=== PATIENT | female | born 1935 | race Caucasian/White ===

== ENCOUNTER → 2017-07-30 | Outpatient (CLI) | payer MEDICARE, OTHER | END | disposition home or self-care (01) | LOC: KCIC MAMMO 12:21 | DX: Z12.31 Encounter for screening mammogram for malignant neoplasm of breast (principal) | CPT/HCPCS: 77063; 77067 ==

== ENCOUNTER → 2018-03-06 | Outpatient (CLI) | payer MEDICARE, BC, OTHER ==
[~2018-03-06] MED LIST: ALLO100T PO; AMLO1TAB99 PO; CRAN1CAP12 PO; DOCU-150 PO; HYDR-2766 PO; HYDR50TA6 PO; METO-269 PO; OMEP40CA5 PO; UBID10CA5 PO; VALS160T3 PO; VIT1CAPS11 PO
--- NOTE | 2018-03-06 15:51 | KCIC ---
Examination: Ultrasound kidneys HISTORY: History of chronic kidney disease stage III COMPARISON: None available FINDINGS: The right kidney measures 10.5 x 4.6 x 4.4 cm. The left kidney measures 11.0 x 4.4 x 4.7 cm. There is a 2.6 cm cystic structure in the right kidney. There is a 7 cm cystic structure identified in the left kidney likely a cyst. Limited examination due to bowel gas. The bilateral renal cortices are thin. There is a cystic structure identified in the right adnexa measuring 5 cm. IMPRESSION: 1. 2.6 cm cyst identified in the right kidney and a 7 cm cystic structure identified in the left kidney likely a cyst. 2. Thinning of the bilateral renal cortices probably due to medical renal disease. 3. 5 cm right adnexal cyst. Ultrasound pelvis may be useful for further evaluation. Electronically signed by: Irving Guadalupe MD (03/06/2018 3:47 PM) [id number]
== END | disposition home or self-care (01) ==
LOC: KCIC US 14:22
PROVIDERS: ATTEND Internal Medicine Nephrology
DX: N28.1 Cyst of kidney, acquired (principal); N18.3 Chronic kidney disease, stage 3 (moderate); N83.8 Other noninflammatory disorders of ovary, fallopian tube and broad ligament
CPT/HCPCS: 76770

== ENCOUNTER → 2018-03-12 | Outpatient (CLI) | payer MEDICARE, BC, OTHER ==
[~2018-03-12] MED LIST changes: +CALC500T54 PO; +FURO40TA4 PO; +GABA600T14 PO; +POTA10TA12 PO
--- NOTE | 2018-03-12 14:33 | KCIC ---
PA and lateral chest x-ray compared to similar study dated January 25, 2014 for dyspnea on effort for 9 months, nonsmoker. FINDINGS: There is focal eventration of the right hemidiaphragm. Lungs are clear. There is mild hyperinflation with flattening of the diaphragms and enlarged retrosternal airspace. Atherosclerosis of the abdominal aorta is noted. Heart size within normal limits. Right shoulder prosthesis is seen. IMPRESSION: 1. Hyperinflation with no acute cardiopulmonary abnormality. 2. Atherosclerosis. Electronically signed by: Aditya Anderson MD (03/12/2018 2:31 PM) [id number]
== END | disposition home or self-care (01) ==
LOC: KCIC 11:41
PROVIDERS: ATTEND Internal Medicine Pulmonary Disease
DX: J98.6 Disorders of diaphragm (principal); I70.0 Atherosclerosis of aorta
CPT/HCPCS: 71046

== ENCOUNTER → 2018-03-21 | Outpatient (CLI) | payer MEDICARE, BC, OTHER ==
--- NOTE | 2018-03-21 15:51 | KCIC ---
CT CHEST WO CONTRAST Indication: Dyspnea with exertion, cough, tightness in chest, sinus drainage, symptoms for about 9 months Technique: Noncontrast CT imaging was performed of the chest, multiplanar reconstruction images submitted. One or more of the following individualized dose reduction techniques were utilized for this examination: 1. Automated exposure control 2. Adjustment of the mA and/or kV according to patient size 3. Use of iterative reconstruction technique. Comparison: None Findings: There is artifact created by right shoulder arthroplasty. There is no pleural or pericardial effusion, pneumothorax, infiltrate, suspicious pulmonary nodularity. Thoracic aortic caliber is within normal limits. There is coronary calcification. There are some small mediastinal nodes, no significantly enlarged nodes identified of the chest. There may be right thyroid nodule although poorly evaluated due to artifact created by right shoulder arthroplasty, possible nodule of the right thyroid gland about 1.7 cm. Major airways are patent. There is multilevel thoracic spondylosis. IMPRESSION: 1. There is coronary calcification. 2. There is right thyroid nodule better characterized by ultrasound if clinically needed. 3. There is no significant pulmonary abnormality. Electronically signed by: Edgar Washington MD (03/21/2018 3:47 PM) [email or web address]
== END | disposition home or self-care (01) ==
LOC: KCIC CT 11:06
PROVIDERS: ATTEND Internal Medicine Pulmonary Disease
DX: I25.10 Atherosclerotic heart disease of native coronary artery without angina pectoris (principal); E04.1 Nontoxic single thyroid nodule; M47.894 Other spondylosis, thoracic region; I10 Essential (primary) hypertension
CPT/HCPCS: 71250

== ENCOUNTER 2018-03-26 08:01 | Outpatient (CLI) | payer MEDICARE, BC, OTHER ==
[2018-03-26] VITALS (9 sets, daily range): BP systolic 123–153; BP diastolic 57–76
[~2018-03-26] VITALS: Ht 152.4 cm; Wt 96.6 kg
[~2018-03-26 08:01] MED LIST changes: -CALC500T54 PO; -FURO40TA4 PO; -GABA600T14 PO; -POTA10TA12 PO
[2018-03-26] MEDS ORDERED: GABA600T14 PO (08:28)
[2018-03-26] MEDS ORDERED: POTA10TA12 PO (08:28)
[2018-03-26] MEDS ORDERED: FURO40TA4 PO (08:28)
[2018-03-26] MEDS ORDERED: CALC500T54 PO (08:28)
[2018-03-26] MEDS ORDERED: LIDOCAINE 1% PF 30 ML VIAL. ONE (08:32)
[2018-03-26] MEDS ORDERED: IODIXANOL 320 MG/ML 100 ML VIAL. ONE (08:32)
[2018-03-26] MEDS ORDERED: IV 1/2 NORMAL SALINE 1,000 ML IV SCH (08:45)
[2018-03-26 08:46] LABS: HEMATOCRIT 39.7 % (36.0-47.0); HEMOGLOBIN 13.5 g/dL (12.0-15.5); RED BLOOD COUNT 4.03 x10^6/uL (3.50-5.40); RED CELL DISTRIBUTION WIDTH 14.5 % (11.5-14.5); WHITE BLOOD COUNT 7.1 x10^3/uL (4.0-11.0)
[2018-03-26 08:51] LABS: CALCIUM 9.6 mg/dL (8.5-10.1); CREATININE 1.3 mg/dL (0.6-1.0); GFR 39.1; POTASSIUM 3.8 mmol/L (3.5-5.1)
[2018-03-26] MEDS ORDERED: MIDAZOLAM HCL/PF 2 MG/2 ML VIAL. IV ONE (09:00)
[2018-03-26] MEDS ORDERED: fentaNYL PF VIAL 100 MCG/2 ML VIAL IV ONE (09:00)
[2018-03-26] MEDS ORDERED: IODIXANOL 320 MG/ML 100 ML VIAL. IART ONE (09:00)
[2018-03-26] MEDS ORDERED: LIDOCAINE 1% PF 30 ML VIAL. INJ ONE (09:00)
[2018-03-26] MEDS ORDERED: CONTRAST GIVEN. MC PRN (09:15)
[2018-03-26] MEDS ORDERED: HYDROcodone/APAP 10/325 1 TAB TABLET PO ONE (14:00)
== END 2018-03-26 15:33 | disposition home or self-care (01) ==
LOC: CCL 08:01
PROVIDERS: ATTEND Internal Medicine Cardiovascular Disease
DX: I25.10 Atherosclerotic heart disease of native coronary artery without angina pectoris (principal); R07.9 Chest pain, unspecified; I12.9 Hypertensive chronic kidney disease with stage 1 through stage 4 chronic kidney disease, or unspecified chronic kidney disease; N18.3 Chronic kidney disease, stage 3 (moderate); Z98.890 Other specified postprocedural states; Z79.899 Other long term (current) drug therapy; M19.90 Unspecified osteoarthritis, unspecified site; Z85.118 Personal history of other malignant neoplasm of bronchus and lung; E78.5 Hyperlipidemia, unspecified; Z96.652 Presence of left artificial knee joint
CPT/HCPCS: 36415; 80048; 85027; 85610; 93453; 99152; 99153; C1769; C1771; C1773; C1892; G0269; J1644; J2250; J3010

== ENCOUNTER → 2018-07-31 | Outpatient (CLI) | payer MEDICARE, OTHER ==
[2018-03-26 14:55] VITALS: BP 135/57
[~2018-07-31] MED LIST changes: +CALC500T54 PO; +FURO40TA4 PO; +GABA600T14 PO; -HYDR-2766 PO; +HYDR-2769 PO; +OCUVITE SOFTGE1 EACH PO; +POTA10TA12 PO; -VIT1CAPS11 PO
--- NOTE | 2018-08-04 09:00 | KCIC ---
Bilateral digital screening mammograms with 3-D tomosynthesis: Reason for examination: Routine screening. Comparison is made to previous studies dated 07/30/2017 and 08/20/2016. Bilateral mammograms in CC and oblique projections were obtained with 2-D imaging and 3-D tomosynthesis imaging on a Siemens Inspiration unit and reviewed on the workstation. Interpretation was made with the benefit of CAD. The skin and nipples show no abnormalities. No abnormal axillary lymph nodes are seen. The breast parenchyma is predominantly fatty. (Breast density: Category A.) There are no dominant masses, suspicious calcifications or architectural distortion. Benign calcifications are present. Impression: No evidence of malignancy. Recommend routine screening. BI-RAD Category 2: Benign. "Our facility is accredited by the [employer] Mammography Program." This patient's information has been entered into a reminder system for the patient to be notified with the results of her examination and a target date for the next mammogram. Electronically signed by: Em Hollins MD (08/04/2018 8:57 AM) [email or web address]
== END | disposition home or self-care (01) ==
LOC: KCIC MAMMO 11:07
PROVIDERS: ATTEND Family Medicine
DX: Z12.31 Encounter for screening mammogram for malignant neoplasm of breast (principal)
CPT/HCPCS: 77063; 77067

== ENCOUNTER → 2018-08-19 | Outpatient (CLI) | payer MEDICARE, BC, OTHER ==
[2018-03-26 14:55] VITALS: BP 135/57
--- NOTE | 2018-08-19 14:10 | KCIC ---
EXAM: Chest CT without intravenous contrast. HISTORY: Solitary pulmonary nodule. TECHNIQUE: Computed tomographic images of the chest were obtained without contrast. Multiplanar reformatting was performed. *One or more of the following individualized dose reduction techniques were utilized for this examination: 1. Automated exposure control. 2. Adjustment of the mA and/or kV according to patient size. 3. Use of iterative reconstruction technique. COMPARISON: 03/21/2018. FINDINGS: There is a stable 2 mm nodule within the right upper lobe. There is a stable 3 mm groundglass nodular opacity within the medial right lower lobe. There is a stable 1 mm nodule within the left upper lobe. There is stable lingular and right middle lobe pleural parenchymal scarring. There is no infiltrate, pleural effusion or pneumothorax. The heart is mildly enlarged. There is coronary artery atherosclerosis. No pathologically enlarged lymph node is seen. There is a tiny hiatal hernia. There is a right thyroid nodule. There is cholelithiasis. There is a suspected 1.2 cm splenic artery aneurysm. There is a large cyst within the upper pole the left kidney measuring 6.8 cm on the [id number]-jh-dtej. This is partially excluded from the [id number]-bj-okxm. There is adrenal gland thickening and slight nodularity. No discrete lesion is seen. There are degenerative changes throughout the spine. IMPRESSION: 1. Tiny bilateral pulmonary nodules and groundglass nodular opacities, the largest of which is groundglass and measures 3 mm within the medial right lower lobe. These are likely benign based on size and interval stability. Follow-up can be performed according to Fleischner Society criteria if clinically indicated 2. Stable lingular and right middle lobe pleural parenchymal scarring. 3. Cholelithiasis. 4. Large left renal cyst. 5. Suspected small splenic artery aneurysm. 6. Stable right thyroid nodule. This can be assessed with a thyroid sonogram. Fleischner Society recommendations (Radiology 2017): SOLID NODULES Solitary solid nodule <6 mm - low-risk patient: no routine follow-up required - high-risk patient: optional CT at 12 months (particularly with suspicious nodule morphology and/or upper lobe location) Solitary solid nodule 6-8 mm - low-risk patient: CT at 6-12 months, then consider CT at 18-24 months - high risk patient: CT at 6-12 months, then if persistent CT at 18-24 months Solitary solid nodule >8 mm - consider CT at 3 months, PET/CT, or tissue sampling Multiple solid nodules <6 mm - low-risk patient: no routine follow-up required - high-risk patient: optional CT at 12 months Multiple solid nodules >6 mm - low-risk patient: CT at 3-6 months, then consider CT at 18-24 months - high risk patient: CT at 3-6 months, then if persistent CT at 18-24 months SUBSOLID NODULES Solitary ground glass nodule <6 mm - no routine follow-up required Solitary ground glass nodule > or = 6 mm - CT at 6-12 months, then if persistent CT every 2 years until 5 years Solitary part solid nodule > or = 6mm - CT at 3-4 months, the if persistent and solid component remains <6 mm, annual CT until 5 years Multiple subsolid nodules <6 mm - CT at 3-6 months, then if stable consider CT at 2 and 4 years in high risk patients Multiple subsolid nodules > or = 6 mm - CT at 3-6 months, then subsequent management based on the most suspicious nodule(s) Electronically signed by: Ara Spencer MD (08/19/2018 2:07 PM) [place] [id number]
== END | disposition home or self-care (01) ==
LOC: KCIC CT 11:12
PROVIDERS: ATTEND Internal Medicine Pulmonary Disease
DX: R91.8 Other nonspecific abnormal finding of lung field (principal); K80.20 Calculus of gallbladder without cholecystitis without obstruction; N28.1 Cyst of kidney, acquired; E04.1 Nontoxic single thyroid nodule; K44.9 Diaphragmatic hernia without obstruction or gangrene; I25.10 Atherosclerotic heart disease of native coronary artery without angina pectoris
CPT/HCPCS: 71250

== ENCOUNTER → 2018-09-26 | Outpatient (CLI) | payer MEDICARE, BC, OTHER ==
[2018-03-26 14:55] VITALS: BP 135/57
--- NOTE | 2018-09-26 17:20 | KCIC ---
Ultrasound of thyroid. HISTORY: Thyroid nodule on CT Ultrasound was used to evaluate the neck and thyroid gland. There is a mixed cystic and solid nodule measuring 1.1 x 0.8 x 0.7 cm in the upper right gland. There is a focal calcification in the mid thyroid. There is a dominant mainly cystic nodule in the lower right thyroid measuring 3 x 2 x 1.9 cm. There is a 6 mm mainly cystic nodule in the lateral left thyroid. There is a 6 mm mixed cystic and solid nodule in the mid left thyroid. There are 7 x 5 and 7 x 4 mm mixed cystic and solid nodules in the mid and lower left thyroid. IMPRESSION: 1. Multinodular gland. 2. Dominant cyst in the lower right thyroid. Follow-up study in one year may be of benefit. Electronically signed by: Marco Hastings MD (09/26/2018 5:17 PM) [facility]
== END | disposition home or self-care (01) ==
LOC: KCIC US 13:00
PROVIDERS: ATTEND Family Medicine
DX: E04.2 Nontoxic multinodular goiter (principal); E07.89 Other specified disorders of thyroid
CPT/HCPCS: 76536

== ENCOUNTER → 2020-02-04 | Outpatient (CLI) | payer MEDICARE, BC, OTHER ==
[2018-03-26 14:55] VITALS: BP 135/57
[~2020-02-04] MED LIST changes: +OMEP40CA45 PO; -OMEP40CA5 PO
--- NOTE | 2020-02-05 08:38 | KCIC ---
CT CHEST WO CONTRAST Indication: Moderate asthma Technique: Noncontrast CT imaging was performed of the chest, multiplanar reconstruction images submitted. One or more of the following individualized dose reduction techniques were utilized for this examination: 1. Automated exposure control 2. Adjustment of the mA and/or kV according to patient size 3. Use of iterative reconstruction technique. Comparison: August 19, 2018 Findings: There is stable tiny 2 mm subpleural right upper lobe nodule image 78 series 2. There is stable mild linear fibrotic change of the right middle lobe. New mild linear density of the right lower lobe near the base is likely mild atelectasis, unchanged mild linear left lower lobe and lingular density likely fibrotic change. There is no new suspicious pulmonary nodularity. There is no infiltrate, pleural or pericardial fluid, pneumothorax. There is no honeycombing. There is coronary calcification. Thoracic aortic caliber is within normal limits, scattered plaque. There are again some small mediastinal nodes, no new significant chest lymphadenopathy. There is again hypodense lesion of the right thyroid gland about 18 mm AP. There is right shoulder arthroplasty. There are hepatic and splenic granulomas. There is again splenic artery aneurysm, unchanged about 12 mm in size. There is 52 mm likely cyst of the superior left kidney, not fully included. There is multilevel thoracic spondylosis. IMPRESSION: 1. There is stable tiny right upper lobe nodule, no new suspicious lung nodularity or infiltrate. There is mild right lower lobe atelectasis, mild fibrotic change at the lung bases. 2. 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 3. There is coronary calcification. 4. There is unchanged right thyroid nodule. There is likely cyst of the superior left kidney although not fully included. Electronically signed by: Edgar Washington MD (02/05/2020 8:35 AM) [place] [id number]
== END | disposition home or self-care (01) ==
LOC: KCIC CT 08:55
PROVIDERS: ATTEND Internal Medicine Pulmonary Disease
DX: E04.1 Nontoxic single thyroid nodule (principal); J98.11 Atelectasis; J45.40 Moderate persistent asthma, uncomplicated; I72.8 Aneurysm of other specified arteries; J84.10 Pulmonary fibrosis, unspecified; R91.8 Other nonspecific abnormal finding of lung field
CPT/HCPCS: 71250

== ENCOUNTER → 2020-02-04 | Outpatient (CLI) | payer MEDICARE, BC, OTHER ==
[2018-03-26 14:55] VITALS: BP 135/57
--- NOTE | 2020-02-04 11:29 | KCIC ---
EXAM: Bilateral screening mammogram. HISTORY: 84-year-old female presents for screening mammography. TECHNIQUE: Full-field digital craniocaudal and mediolateral oblique views of both breasts are obtained for evaluation. Computer aided detection with FillmD software version 9.3 was applied. COMPARISON: 07/31/2018 BREAST PARENCHYMAL DENSITY: Level B - Scattered fibroglandular densities. FINDINGS: There is a new cluster of faint microcalcifications within the 4:30 position of the right breast centered approximately 6 cm from the nipple. There are additional scattered benign calcifications throughout both breasts. There is no new suspicious mass or architectural distortion. IMPRESSION: BI-RADS Category 0: Incomplete. Additional imaging needed. RECOMMENDATION: Further evaluation with spot magnification views of clustered microcalcifications within the 4:30 position of the right breast approximately 6 cm from nipple is recommended to better assess calcification morphology. If your mammogram demonstrates that you have dense breast tissue, which could hide abnormalities, and if you have other risk factors for breast cancer that have been identified, you might benefit from supplemental screening tests that may be suggested by your ordering physician. Dense breast tissue, in and of itself, is a relatively common condition. This information is not provided to cause undue concern, but rather to raise your awareness and to promote discussion with your physician regarding the presence of other risk factors, in addition to dense breast tissue. A report of your mammography results will be sent to you and your physician. You should contact your physician if you have any questions or concerns regarding this report. Mammography is a sensitive method for finding small breast cancers, but it does not detect them all and is not a substitute for careful clinical examination. A negative mammogram does not negate a clinically suspicious finding and should not result in delay in biopsying a clinically suspicious abnormality. PQRS compliance statement - Patient information was entered into a reminder system with a target due date for the next mammogram. "Our facility is accredited by the [employer] Mammography Program." Electronically signed by: Ara Spencer MD (02/04/2020 11:26 AM) [facility]
--- NOTE | 2020-02-04 15:51 | KCIC ---
Clinical indications: Thyroid nodule. Follow-up study. COMPARISON: September 26, 2018.. Findings: The longitudinal and AP and transverse dimensions of the right lobe of the thyroid gland are 5.6 cm x 2.0 cm x 1.9 cm respectively. There is a large complex cyst of the lower pole measuring 27 mm. This measured 30 mm previously This is an ACR TI RADS type I lesion, benign. There is an isoechoic solid nodule with cystic component within the upper pole measuring 12 mm. This measured 11 mm previously. This is an ACR TI RADS type II lesion, not suspicious. The longitudinal and AP and transverse dimensions of the left lobe are 5.0 cm x 1.7 cm x 1.8 cm respectively. There are 2 complex cystic nodules seen adjacent to one within the mid aspect. One more superior nodule looks like a complex colloid cyst measuring 11 mm with minimal superior solid component. One more inferiorly demonstrates some mild solid component within it and the nodule measures 10 mm in size. Both of these have increased in size from the prior study although they're considered an ACR TI RADS type II lesions, not suspicious. The isthmus is homogeneous in appearance and measures 2 mm in thickness. Impression: Benign thyroid nodules bilaterally. Reference: ACR thyroid imaging, reporting and data system (TI-RADS): White paper of the ACR TI-RADS committee; [employer]; volume 14, issue 5, pages [phone] (September 2016) Electronically signed by: Sean Flores MD (02/04/2020 3:49 PM) [id number]
== END | disposition home or self-care (01) ==
LOC: KCIC US 08:59
PROVIDERS: ATTEND Family Medicine
DX: Z12.31 Encounter for screening mammogram for malignant neoplasm of breast (principal); N64.89 Other specified disorders of breast; E04.2 Nontoxic multinodular goiter
CPT/HCPCS: 76536; 77067

== ENCOUNTER → 2020-02-11 | Outpatient (CLI) | payer MEDICARE, BC, OTHER ==
[2018-03-26 14:55] VITALS: BP 135/57
--- NOTE | 2020-02-11 10:30 | KCIC ---
Right breast diagnostic digital mammograms: Reason for examination: New cluster of calcifications on screening mammogram. Coned compression magnification views were obtained in CC and true lateral projections. A cluster of microcalcifications persists in the lower inner quadrant at approximately the 4:30 B position. Further evaluation with stereotactic biopsy is recommended. IMPRESSION: Clustered calcifications at the 4:30 B position of the right breast. Recommend stereotactic biopsy. BI-RADS Category 4: Suspicious. These findings have been discussed with the patient and the nurse practitioner for Alda [facility], was notified about these findings at 10:25 AM on 02/11/2020. "Our facility is accredited by the [employer] Mammography Program." This patient's information has been entered into a reminder system for the patient to be notified with the results of her examination and a target date for the next mammogram. Electronically signed by: Em Hollins MD (02/11/2020 10:27 AM) [id number]
== END | disposition home or self-care (01) ==
LOC: KCIC MAMMO 09:47
PROVIDERS: ATTEND Family Medicine
DX: R92.1 Mammographic calcification found on diagnostic imaging of breast (principal)
CPT/HCPCS: 77065

== ENCOUNTER 2020-09-18 08:37 | Emergency (ER) | payer MEDICARE, BC, OTHER ==
[~2020-09-18] VITALS: Ht 149.9 cm; Wt 70.0 kg
[~2020-09-18 08:37] MED LIST changes: -HYDR50TA6 PO; +HYDR50TA9 PO
[2020-09-18 09:27] VITALS: BP 188/80
--- NOTE | 2020-09-18 09:30 | ED.ADGEN ---
Past Medical History Past Medical History: Arthritis, Hypertension, Renal Disease, Other Additional Past Medical Histor: GOUT, BURSITIS Past Surgical History: Knee Replacement, Other Additional Past Surgical Histo: R ROTATOR CUFF, R CARPAL TUNNEL, KELLY KNEE, R SHOULDER REPLACEMENT Smoking Status: Never Smoker Alcohol Use: None General Adult EDM: Chief Complaint: HAND PROBLEM HPI: HPI: Patient is a 85 year old female presenting with left hand pain and swelling. Patient states she was mowing her lawn yesterday when she had a bump and fell off landing on her hand. She has been trying to ice it without improvement. No other injuries. Denies any paresthesias. Is right-handed. Review of Systems: Review of Systems: All other systems within normal limits except for as noted in the HPI Allergies: Allergies: Allergies Coded Allergies Type Severity Reaction Last Updated Verified acetaminophen Allergy Intermediate itching 03/26/18 Yes oxycodone Allergy Intermediate itching 03/26/18 Yes Physical Exam: PE: Constitutional: Well developed, well nourished, no acute distress, non-toxic appearance. [] HENT: Normocephalic, atraumatic, bilateral external ears normal, nose normal. [] Eyes: PERRLA, conjunctiva normal, no discharge. [] Neck: No rigidity, supple, no stridor. [] Cardiovascular: Regular rate and rhythm, brisk cap refill [] Lungs & Thorax: Non labored symmetric respirations, no tachypnea or respiratory distress [] Abdomen: Soft, nondistended. Skin: Warm, dry, no erythema, no rash. [] Back: Unremarkable Extremities: No deformities, range of motion grossly intact, no lower extremity edema. Left hand: Pain and swelling over second and third metacarpals. Neurovascularly intact distal [] Neurologic: Alert and oriented X 3, no focal deficits noted. [] Psychologic: Affect normal, judgement normal, mood normal. [] Current Patient Data: Vital Signs: Vital Signs Date Time Temp Pulse Resp B/P (MAP) Pulse Ox O2 Delivery O2 Flow Rate FiO2 09/18/20 09:27 79 16 188/80 (116) 96 Room Air 09/18/20 08:49 99.4 99.4 EKG: EKG: [] Heart Score: C/O Chest Pain: No Risk Factors: Risk Factors: DM, Current or recent (<one month) smoker, HTN, HLP, family his tory of CAD, obesity. Risk Scores: Score 0 - 3: 2.5% MACE over next 6 weeks - Discharge Home Score 4 - 6: 20.3% MACE over next 6 weeks - Admit for Clinical Observation Score 7 - 10: 72.7% MACE over next 6 weeks - Early Invasive Strategies Radiology/Procedures: Radiology/Procedures: Exam Date: 09/18/2020 9:25 AM XR HAND_LEFT 3 VIEWS Indication: Reason: pain, swelling after fall x1 day ago / Spl. Instructions: / History: FINDINGS/ IMPRESSION: Severe degenerative changes are present at the first CMC joint and at multiple IP joints. Tzcx-st-[id number] degenerative changes are seen elsewhere in the hand. No displaced acute fracture or dislocation. There is diffuse soft tissue edema.[] Course & Med Decision Making: Course & Med Decision Making Pertinent Labs and Imaging studies reviewed. (See chart for details) [] Dragon Disclaimer: Dragon Disclaimer: This electronic medical record was generated, in whole or in part, using a voice recognition dictation system. Departure Departure Impression: Primary Impression: Injury of left hand Disposition: 01 HOME / SELF CARE / HOMELESS Condition: STABLE Referrals: FANI CARPENTER MD (PCP) Patient Instructions: RICE - Routine Care for Injuries ABRAHAM DONAHUE MD September 18, 2020 09:29
--- NOTE | 2020-09-18 09:44 | RAD ---
Exam Date: 09/18/2020 9:25 AM XR HAND_LEFT 3 VIEWS Indication: Reason: pain, swelling after fall x1 day ago / Spl. Instructions: / History: FINDINGS/ IMPRESSION: Severe degenerative changes are present at the first CMC joint and at multiple IP joints. Mild-to-mod erate degenerative changes are seen elsewhere in the hand. No displaced acute fracture or dislocation . There is diffuse soft tissue edema. Electronically signed by: Moshe Pierson MD (09/18/2020 9:42 AM) [id number]
== END 2020-09-18 10:05 | disposition home or self-care (01) ==
LOC: ER 08:37
DX: S69.92XA Unspecified injury of left wrist, hand and finger(s), initial encounter (principal); I10 Essential (primary) hypertension; M10.9 Gout, unspecified; W18.39XA Other fall on same level, initial encounter; Y93.89 Activity, other specified; Y92.89 Other specified places as the place of occurrence of the external cause; Y99.8 Other external cause status; Z88.5 Allergy status to narcotic agent; Z88.6 Allergy status to analgesic agent
CPT/HCPCS: 73130; 99284

== ENCOUNTER → 2021-01-24 | Outpatient (CLI) | payer MEDICARE, BC, OTHER ==
[~2021-01-24] MED LIST changes: -DOCU-150 PO; +DOCU-158 PO; -OMEP40CA45 PO; +OMEP40CA7 PO
--- NOTE | 2021-01-24 11:33 | KCIC ---
CT THORAX WO History: Asthma, lung nodule. Comparison: CT chest 02/04/2020. Technique: Noncontrast CT of the chest. Findings: Assessment is limited by lack of IV contrast. Cardiovascular: Moderate aortic calcification. No aneurysm. Moderate coronary artery calcification. N ormal heart size. No significant pericardial effusion. Mediastinum and cristina: Shotty mediastinal lymph nodes. No enlarged adenopathy. The esophagus is unrema rkable. Punctate calcifications in the right thyroid redemonstrated. Airways, lungs and pleura: Mild diffuse bronchial wall thickening. No significant bronchiectasis. No airspace consolidation. Mild linear areas of atelectasis/scarring involving the lower lobes, lingula and right middle lobe. A few tiny subpleural nodules are redemonstrated. No new concerning pulmonary nodules. Upper abdomen: Redemonstrated splenic artery aneurysm measuring 1.2 cm. Calcifications of the spleen and liver consistent with old granulomatous disease. Osseous structures and soft tissues: Mild anterolisthesis of C7 on T1. Flowing osteophytes in the tho racic spine. Reverse right shoulder arthroplasty. Advanced degenerative changes of the left shoulder. Impression: 1. Mild diffuse bronchial wall thickening. No airspace consolidation or concerning pulmonary nodule. 2. Moderate coronary artery calcification. 3. Stable 1.2 cm splenic artery aneurysm. ------ Exposure: One or more of the following individualized dose reduction techniques were utilized for thi s examination: 1. Automated exposure control 2. Adjustment of the mA and/or kV according to patient size 3. Use of iterative reconstruction technique. Electronically signed by: Jim Bucio MD (01/24/2021 11:31 AM) [facility]
== END ==
LOC: KCIC CT 10:10
PROVIDERS: ATTEND Internal Medicine Pulmonary Disease
DX: I25.10 Atherosclerotic heart disease of native coronary artery without angina pectoris (principal); J98.09 Other diseases of bronchus, not elsewhere classified; I72.8 Aneurysm of other specified arteries; I70.0 Atherosclerosis of aorta; M19.011 Primary osteoarthritis, right shoulder; M43.13 Spondylolisthesis, cervicothoracic region; M25.78 Osteophyte, vertebrae
CPT/HCPCS: 71250

== ENCOUNTER → 2021-05-10 | Outpatient (CLI) | payer MEDICARE, BC, OTHER ==
--- NOTE | 2021-05-10 13:01 | KCIC ---
EXAM: Left hand, 3 views. HISTORY: Fall. COMPARISON: None. FINDINGS: 3 views left hand are obtained. There is severe first carpometacarpal joint space narrowing with subchondral sclerosis, bony remodeling and chronic fragmented osteophytes. There is severe firs t interphalangeal joint spurring. There is severe second and third distal interphalangeal joint and f ifth proximal interphalangeal joint space narrowing, spurring and slight ulnar deviation. There is se cond and third metacarpal phalangeal joint space narrowing and subchondral sclerosis. There is spurri ng of the second and fifth metacarpal heads. There is a degenerative subchondral cyst within the eugene te. There is no foreign body. 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 No acute osseous finding. Electronically signed by: Ara Spencer MD (05/10/2021 12:58 PM) [id number]
== END ==
LOC: KCIC 12:35
PROVIDERS: ATTEND Family Medicine
DX: M19.042 Primary osteoarthritis, left hand (principal); M25.742 Osteophyte, left hand; M25.842 Other specified joint disorders, left hand; M79.89 Other specified soft tissue disorders; M77.8 Other enthesopathies, not elsewhere classified
CPT/HCPCS: 73130

== ENCOUNTER → 2021-08-31 | Outpatient (CLI) | payer MEDICARE, BC, OTHER ==
--- NOTE | 2021-08-31 14:38 | KCIC ---
EXAM: XR SHOULDER_LEFT 2+ VIEWS 08/31/2021 12:47 PM CLINICAL INDICATION: Left shoulder pain and limited range of motion COMPARISON: None TECHNIQUE: 3 views of the left shoulder FINDINGS: No acute fracture. Alignment is normal. There is glenohumeral degenerative joint disease w ith prominent humeral head osteophytes. Severe acromioclavicular degenerative joint disease with larg e osteophytes. The subacromial space appears narrowed on the AP external rotation view. IMPRESSION: 1. Moderate acromioclavicular and glenohumeral degenerative joint disease. 2. Findings suggesting chronic rotator cuff pathology. Electronically signed by: Tanja Burton MD (08/31/2021 2:36 PM) [id number]
== END ==
LOC: KCIC 12:42
PROVIDERS: ATTEND Family Medicine
DX: M19.012 Primary osteoarthritis, left shoulder (principal); M25.712 Osteophyte, left shoulder
CPT/HCPCS: 73030